=== PATIENT | male | born 1990 | race American Indian/Alaskan Native ===

== ENCOUNTER 2019-01-28 00:38 | Emergency (ER) | payer SELFPAY ==
[~2019-01-28] VITALS: Ht 170.2 cm; Wt 81.7 kg
[~2019-01-28 00:38] MED LIST: Bactrim Ds Tab1 EACH PO; CLIN300 PO; CYCL10 PO; Cyclobenzaprine5 MG PO; Keflex500 MG PO; NAPR550 PO; Naprosyn500 MG PO; Norco 5-325 Ta1 EACH PO; Voltaren100 GM TOP
== END 2019-01-28 00:40 ==
LOC: ER 00:38
DX: F10.129 Alcohol abuse with intoxication, unspecified (principal)
CPT/HCPCS: 99282